=== PATIENT | female | born 2000 | race Caucasian/White ===

== ENCOUNTER 2021-12-05 17:30 | Emergency (ER) | payer MEDICAID ==
[2021-12-05 18:50] LABS: HEMOGLOBIN 14.5 gm/dl (12.3-15.3); RED BLOOD COUNT 4.98 M/UL (4.00-5.10); WHITE BLOOD COUNT 11.2 K/UL (4.5-11.0)
[2021-12-05 19:06] LABS: BUN/CREATININE RATIO 19 (0-10)
[2021-12-05] MEDS ORDERED: GLUCOPHAGE 500500 MG PO (21:29)
== END 2021-12-05 21:57 | disposition home or self-care (01) ==
LOC: ER1 17:30
PROVIDERS: Emergency Medicine
DX: R07.9 Chest pain, unspecified (principal); E11.65 Type 2 diabetes mellitus with hyperglycemia; E66.9 Obesity, unspecified; F17.200 Nicotine dependence, unspecified, uncomplicated
CPT/HCPCS: 71045; 80053; 82009; 82550; 82553; 82800; 82962; 83036; 84484; 84703; 85025; 85379; 93005; 96374; 99285